=== PATIENT | male | born 1980 | race American Indian/Alaskan Native ===

== ENCOUNTER 2019-11-13 15:19 | Emergency (ER) | payer SELFPAY ==
[2019-11-13 17:10] VITALS: BP 165/82
--- NOTE | 2019-11-13 17:17 | Emergency Department Report ---
Chief Complaint: Dyspnea/Respdistress Stated Complaint: CHEST PAIN Time Seen by Provider: 11/13/19 17:11 - HPI History of Present Illness: The pt p/w 3 week h/o CP and sob with smoking. Pt states he spit blood out of his mouth he believes is 2/2 "bad tooth." pt denies cough or fever - Exam Vital Signs: Vital Signs 11/13/19 17:08 Temperature 99.3 F Pulse Rate 65 Blood Pressure 165/82 [Right] O2 Sat by Pulse 99 Oximetry MSE screening note: Focused history and physical exam performed. Due to findings the following was ordered: cbc, bmp, ck, ckmb, tro, pt/inr cxr ED Disposition for MSE Condition: Stable
--- NOTE | 2019-11-13 17:50 | XRay Report ---
CHEST 2 VIEWS INDICATION / CLINICAL INFORMATION: chest pain. Trans of breath. COMPARISON: None available. FINDINGS: SUPPORT DEVICES: None. HEART / MEDIASTINUM: No significant abnormality. LUNGS / PLEURA: No significant pulmonary or pleural abnormality. No pneumothorax. ADDITIONAL FINDINGS: No significant additional findings. IMPRESSION: 1. No acute findings. Signer Name: Wing Berg MD Signed: 11/13/2019 5:46 PM Workstation Name: [id number]
[2019-11-13 17:55] LABS: Basophils # (Auto) 0.1 K/mm3 (0.0-0.1); Basophils % (Auto) 0.9 % (0.0-1.8); Eosinophils # (Auto) 0.3 K/mm3 (0.0-0.4); Eosinophils % (Auto) 3.6 % (0.0-4.3); Lymphocytes # (Auto) 2.7 K/mm3 (1.2-5.4); Lymphocytes % (Auto) 36.9 % (13.4-35.0); Mean Corpuscular HGB Conc 36 % (32-34); Mean Corpuscular Volume 90 fl (84-94); Monocytes # (Auto) 0.6 K/mm3 (0.0-0.8); Monocytes % (Auto) 7.6 % (0.0-7.3); Platelet Count 210 K/mm3 (140-440); Red Blood Count 4.77 M/mm3 (3.65-5.03); Red Cell Distribution Width 13.4 % (13.2-15.2)
[2019-11-13 17:56] LABS: Hematocrit 43.1 % (35.5-45.6); Hemoglobin 15.4 gm/dl (11.8-15.2)
[2019-11-13 18:10] LABS: INR 0.97 (0.87-1.13)
[2019-11-13 18:14] LABS: Creatine Kinase MB 2.9 ng/mL (0.0-4.0)
[2019-11-13 18:16] LABS: BUN/Creatinine Ratio 13; Blood Urea Nitrogen 13 mg/dL (9-20); Calcium 9.3 mg/dL (8.4-10.2); Hemolysis Index 43
== END 2019-11-13 20:05 | disposition left against medical advice (07) ==
LOC: ED 15:19
DX: R07.89 Other chest pain (principal); Z53.21 Procedure and treatment not carried out due to patient leaving prior to being seen by health care provider
CPT/HCPCS: 36415; 71046; 80048; 82550; 82553; 84484; 85025; 85610; 93005; 93010